=== PATIENT | male | born 1980 | race Caucasian/White ===

== ENCOUNTER → 2019-02-26 12:58 | Outpatient (CLI) | payer MEDICAID | END | disposition home or self-care (01) | LOC: D.US 12:58 | PROVIDERS: ATTEND Nurse Practitioner Family | DX: I10 Essential (primary) hypertension (principal); G47.33 Obstructive sleep apnea (adult) (pediatric); Z68.43 Body mass index [BMI] 50.0-59.9, adult ==

== ENCOUNTER → 2019-03-09 13:20 | Outpatient (CLI) | payer MEDICAID | END | disposition home or self-care (01) | LOC: D.CT 13:20 | PROVIDERS: ATTEND Nurse Practitioner Family | DX: R93.5 Abnormal findings on diagnostic imaging of other abdominal regions, including retroperitoneum (principal); I10 Essential (primary) hypertension; Z72.0 Tobacco use ==